=== PATIENT | male | born 1940 | race Two or more races ===

== ENCOUNTER 2020-09-30 12:48 | Emergency (ER) | payer MEDICAID ==
[~2020-09-30] VITALS: Ht 180.3 cm; Wt 96.0 kg
[2020-09-30 12:55] VITALS: BP 132/67
== END 2020-09-30 14:29 | disposition left against medical advice (07) ==
LOC: ER 12:48
DX: R07.89 Other chest pain (principal); R11.2 Nausea with vomiting, unspecified
CPT/HCPCS: 93005; 99283